=== PATIENT | female | born 1940 | race Caucasian/White ===

== ENCOUNTER 2024-05-04 07:21 | Outpatient (CLI) | payer OTHER | END 2024-05-04 07:35 | disposition home or self-care (01) | LOC: TOM 07:21 | PROVIDERS: ATTEND Internal Medicine Gastroenterology | DX: R19.5 Other fecal abnormalities (principal); R97.0 Elevated carcinoembryonic antigen [CEA]; K59.00 Constipation, unspecified ==

== ENCOUNTER 2024-12-26 07:05 | Outpatient (CLI) | payer OTHER ==
[2024-12-26 08:05] LABS: CREATININE SERUM 0.94 mg/dL (0.55-1.02)
== END 2024-12-26 07:08 | disposition home or self-care (01) ==
LOC: LAB 07:05
DX: C25.9 Malignant neoplasm of pancreas, unspecified (principal); R55 Syncope and collapse

== ENCOUNTER 2024-12-26 07:44 | Outpatient (CLI) | payer OTHER | END 2024-12-26 07:49 | disposition home or self-care (01) | LOC: MRI 07:44 | PROVIDERS: ATTEND Internal Medicine Gastroenterology | DX: R55 Syncope and collapse (principal); C25.9 Malignant neoplasm of pancreas, unspecified | CPT/HCPCS: 70553; 74183; Q9965 ==